=== PATIENT | female | born 1975 | race Two or more races ===

== ENCOUNTER 2019-04-09 09:55 | Inpatient (IN) | payer OTHER ==
[~2019-04-09] VITALS: Ht 172.7 cm; Wt 93.0 kg
[~2019-04-09 09:55] MED LIST: NAPR60CR2; None per pt
[2019-04-09] MEDS ORDERED: LACTATED RINGERS 1,000 ML IV SCH (10:39)
[2019-04-09] MEDS: SCOPOLAMINE 1MG PATCH TD SCH (10:56)
[2019-04-09 11:00] LABS: BASOPHILS # (AUTO) 0.05 x10^3/uL (0-0.1); BASOPHILS % (AUTO) 1 % (0-1); EOSINOPHILS # (AUTO) 0.11 x10^3/uL (0-0.4); EOSINOPHILS % (AUTO) 2 % (1-7); LYMPHOCYTES # (AUTO) 1.55 x10^3/uL (1-3.4); LYMPHOCYTES % (AUTO) 23 % (22-44); MD NO; MEAN CORPUSCULAR HEMOGLOBIN 31.3 pg (27.0-34.8); MEAN CORPUSCULAR HGB CONC 33.7 g/dL (32.4-35.8); MEAN CORPUSCULAR VOLUME 92.7 fL (80-100); MEAN PLATELET VOLUME 8.2 fL (7.4-10.4); MONOCYTES # (AUTO) 0.35 x10^3/uL (0.2-0.8); MONOCYTES % (AUTO) 5 % (2-9); NEUTROPHILS # (AUTO) 4.73 x10^3/uL (1.8-6.8); NEUTROPHILS % (AUTO) 70 % (42-75); PLATELET COUNT 353 x10^3/uL (130-400); RED BLOOD COUNT 4.44 x10^6/uL (3.82-5.3); RED CELL DISTRIBUTION WIDTH 12.9 % (9.6-15.2)
[2019-04-09] MEDS ORDERED: GABAPENTIN 300 MG CAPSULE PO ONE (11:00)
[2019-04-09] MEDS ORDERED: DIAZEPAM 5 MG TABLET PO ONE (11:00)
[2019-04-09] MEDS ORDERED: ACETAMINOPHEN 500 MG TABLET PO ONE (11:00)
[2019-04-09 11:11] LABS: ALANINE AMINOTRANSFERASE 25 U/L (12-78); ANION GAP 6 mmol/L (5-15); CALCIUM 8.9 mg/dL (8.5-10.1); CHLORIDE 109 mmol/L (98-107)
[2019-04-09 11:14] LABS: ALKALINE PHOSPHATASE 46 U/L (45-117); BILIRUBIN,TOTAL 0.8 mg/dL (0.2-1.0); CREATININE 0.81 mg/dL (0.55-1.02)
[2019-04-09] MEDS ORDERED: FENTANYL PF 250 MCG/5ML ONE ×2 (11:44→12:52)
[2019-04-09] MEDS ORDERED: MIDAZOLAM 1 MG/ML, 2ML ONE (11:44)
[2019-04-09] MEDS ORDERED: PROPOFOL 10 MG/ML, 20ML ONE (11:45)
[2019-04-09] MEDS ORDERED: DEXAMETHASONE 4 MG/ML, 1ML ONE (11:45)
[2019-04-09] MEDS ORDERED: CEFOTETAN 2 GM ONE (12:02)
[2019-04-09] MEDS ORDERED: SUCCINYLCHOLINE 20 MG/ML, 10ML ONE (12:54)
[2019-04-09] MEDS ORDERED: ROCURONIUM 10MG/ML,5ML ONE (12:54)
[2019-04-09] MEDS ORDERED: DIAZEPAM 5 MG/ML, 2ML IVPush PRN (14:00)
[2019-04-09] MEDS ORDERED: OXYcodone 5 MG/5 ML ORAL.SOL UDC PO PRN (14:00)
[2019-04-09] MEDS ORDERED: MEPERIDINE/PF 25MG/ML,1ML IVPush PRN (14:00)
[2019-04-09] MEDS ORDERED: HALOPERIDOL 5 MG/ML IV PRN (14:00)
[2019-04-09] MEDS ORDERED: ONDANSETRON ODT 8 MG PO PRN (14:00)
[2019-04-09] MEDS ORDERED: hydrALAzine 20 MG/ML, 1ML IV PRN (14:00)
[2019-04-09] MEDS ORDERED: MIDAZOLAM 1 MG/ML, 2ML IV PRN (14:00)
[2019-04-09] MEDS ORDERED: PROMETHAZINE 25 MG/ML, 1ML IV PRN (14:00)
[2019-04-09] MEDS ORDERED: EPHEDRINE 50 MG/ML, 1ML IVPush PRN (14:00)
[2019-04-09] MEDS ORDERED: HYDROmorphone 2 MG/ML, 1ML IVPush PRN (14:00)
[2019-04-09] MEDS ORDERED: LABETALOL 5MG/ML, 20ML IV PRN (14:00)
[2019-04-09] MEDS ORDERED: ONDANSETRON 2MG/ML, 2ML IV PRN (14:00)
[2019-04-09] MEDS ORDERED: PROMETHAZINE 12.5 MG SUPP PR PRN (14:00)
[2019-04-09] MEDS ORDERED: ALBUTEROL SULFATE 2.5 MG/3 ML NPPB PRN (14:00)
[2019-04-09] MEDS ORDERED: SUGAMMADEX 200 MG/2 ML IVPush ONE (14:14)
[2019-04-09] MEDS ORDERED: ONDANSETRON 2MG/ML, 2ML ONE (14:14)
[2019-04-09] MEDS ORDERED: KETOROLAC 30 MG/1 ML ONE (14:34)
[2019-04-09] MEDS ORDERED: MEPERIDINE/PF 25MG/ML,1ML ONE (15:04)
[2019-04-09] MEDS ORDERED: OXYcodone 5 MG/5 ML ORAL.SOL UDC ONE (15:04)
[2019-04-09] MEDS ORDERED: FENTANYL PF 100 MCG/2ML ONE (15:24)
[2019-04-09] MEDS: FENTANYL PF 100 MCG/2ML IV PRN ×3 (15:25→15:40)
[2019-04-09] MEDS ORDERED: PROMETHAZINE 25 MG/ML, 1ML ONE (15:26)
[2019-04-09] MEDS: CEFOTETAN PMX 2GM/50ML 50 ML IVPB SCH (20:16)
[2019-04-09 20:18] VITALS: BP 103/68
[2019-04-09] MEDS: FAMOTIDINE 20 MG/2 ML IVPush SCH (21:20)
[2019-04-09] MEDS: D5%-0.45NACL+KCL 20MEQ 1,000 ML IV SCH (21:36)
[2019-04-10 00:57] VITALS: BP 98/61
[2019-04-10] MEDS: D5%-0.45NACL+KCL 20MEQ 1,000 ML IV SCH ×3 (05:23→22:42)
[2019-04-10 06:04] LABS: CHLORIDE 108 mmol/L (98-107)
[2019-04-10 06:08] LABS: ANION GAP 6 mmol/L (5-15); CALCIUM 7.9 mg/dL (8.5-10.1); CREATININE 0.95 mg/dL (0.55-1.02)
[2019-04-10 06:13] LABS: BASOPHILS # (AUTO) 0.02 x10^3/uL (0-0.1); BASOPHILS % (AUTO) 0 % (0-1); EOSINOPHILS # (AUTO) 0.02 x10^3/uL (0-0.4); EOSINOPHILS % (AUTO) 0 % (1-7); LYMPHOCYTES # (AUTO) 0.79 x10^3/uL (1-3.4); LYMPHOCYTES % (AUTO) 6 % (22-44); MD NO; MEAN CORPUSCULAR HEMOGLOBIN 31.2 pg (27.0-34.8); MEAN CORPUSCULAR HGB CONC 33.9 g/dL (32.4-35.8); MEAN CORPUSCULAR VOLUME 92.1 fL (80-100); MONOCYTES # (AUTO) 0.52 x10^3/uL (0.2-0.8); MONOCYTES % (AUTO) 4 % (2-9); NEUTROPHILS # (AUTO) 12.36 x10^3/uL (1.8-6.8); NEUTROPHILS % (AUTO) 90 % (42-75); PLATELET COUNT 308 x10^3/uL (130-400); RED CELL DISTRIBUTION WIDTH 13.4 % (9.6-15.2)
[2019-04-10 07:45] VITALS: BP 99/65
[2019-04-10] MEDS: ENOXAPARIN 40 MG/0.4 ML SQ SCH (09:17)
[2019-04-10] MEDS: FAMOTIDINE 20 MG/2 ML IVPush SCH ×2 (09:17→21:44)
[2019-04-10] MEDS: CEFOTETAN PMX 2GM/50ML 50 ML IVPB SCH (09:17)
[2019-04-10 13:28] VITALS: BP 108/53
[2019-04-10 20:19] VITALS: BP 91/58
[2019-04-11 02:46] VITALS: BP 103/67
[2019-04-11] MEDS: D5%-0.45NACL+KCL 20MEQ 1,000 ML IV SCH ×2 (04:08→14:51)
[2019-04-11 05:14] LABS: BASOPHILS # (AUTO) 0.02 x10^3/uL (0-0.1); BASOPHILS % (AUTO) 0 % (0-1); EOSINOPHILS # (AUTO) 0.02 x10^3/uL (0-0.4); EOSINOPHILS % (AUTO) 0 % (1-7); LYMPHOCYTES # (AUTO) 1.72 x10^3/uL (1-3.4); LYMPHOCYTES % (AUTO) 18 % (22-44); MD NO; MEAN CORPUSCULAR HEMOGLOBIN 30.8 pg (27.0-34.8); MEAN CORPUSCULAR HGB CONC 32.9 g/dL (32.4-35.8); MEAN CORPUSCULAR VOLUME 93.8 fL (80-100); MEAN PLATELET VOLUME 8.8 fL (7.4-10.4); MONOCYTES # (AUTO) 0.56 x10^3/uL (0.2-0.8); MONOCYTES % (AUTO) 6 % (2-9); NEUTROPHILS # (AUTO) 7.47 x10^3/uL (1.8-6.8); NEUTROPHILS % (AUTO) 76 % (42-75); PLATELET COUNT 285 x10^3/uL (130-400); RED BLOOD COUNT 3.51 x10^6/uL (3.82-5.3); RED CELL DISTRIBUTION WIDTH 13.7 % (9.6-15.2)
[2019-04-11 07:35] VITALS: BP 96/48
[2019-04-11] MEDS: FAMOTIDINE 20 MG/2 ML IVPush SCH ×2 (09:15→22:11)
[2019-04-11] MEDS: ENOXAPARIN 40 MG/0.4 ML SQ SCH (09:15)
[2019-04-11 15:29] VITALS: BP 97/53
[2019-04-11 19:19] VITALS: BP 95/64
[2019-04-12 02:09] VITALS: BP 95/63
[2019-04-12] MEDS: D5%-0.45NACL+KCL 20MEQ 1,000 ML IV SCH ×2 (04:56→14:28)
[2019-04-12 07:37] VITALS: BP 94/59
[2019-04-12] MEDS: SCOPOLAMINE 1MG PATCH TD SCH (11:00)
[2019-04-12 13:21] VITALS: BP 85/54
[2019-04-12 14:00] VITALS: BP 97/56
[2019-04-12] MEDS: FAMOTIDINE 20 MG/2 ML IVPush SCH ×2 (14:31→20:46)
[2019-04-12] MEDS: OXYcodone/APAP 7.5/325MG TABLET PO PRN ×2 (16:01→22:13)
[2019-04-12] MEDS: ONDANSETRON 2MG/ML, 2ML IV PRN ×2 (16:03→22:13)
[2019-04-12 21:24] VITALS: BP 101/67
[2019-04-13] MEDS: D5%-0.45NACL+KCL 20MEQ 1,000 ML IV SCH ×3 (01:34→14:46)
[2019-04-13] MEDS: ONDANSETRON 2MG/ML, 2ML IV PRN ×2 (03:57→10:54)
[2019-04-13] MEDS: OXYcodone/APAP 7.5/325MG TABLET PO PRN (03:57)
[2019-04-13 03:59] VITALS: BP 96/62
[2019-04-13 06:04] LABS: BASOPHILS # (AUTO) 0.05 x10^3/uL (0-0.1); BASOPHILS % (AUTO) 1 % (0-1); EOSINOPHILS # (AUTO) 0.44 x10^3/uL (0-0.4); EOSINOPHILS % (AUTO) 6 % (1-7); LYMPHOCYTES # (AUTO) 1.93 x10^3/uL (1-3.4); LYMPHOCYTES % (AUTO) 26 % (22-44); MD NO; MEAN CORPUSCULAR HEMOGLOBIN 31.5 pg (27.0-34.8); MEAN CORPUSCULAR HGB CONC 33.8 g/dL (32.4-35.8); MEAN CORPUSCULAR VOLUME 93.4 fL (80-100); MEAN PLATELET VOLUME 8.8 fL (7.4-10.4); MONOCYTES # (AUTO) 0.57 x10^3/uL (0.2-0.8); MONOCYTES % (AUTO) 8 % (2-9); NEUTROPHILS # (AUTO) 4.35 x10^3/uL (1.8-6.8); NEUTROPHILS % (AUTO) 59 % (42-75); PLATELET COUNT 300 x10^3/uL (130-400); RED BLOOD COUNT 3.37 x10^6/uL (3.82-5.3); RED CELL DISTRIBUTION WIDTH 13.2 % (9.6-15.2)
[2019-04-13 07:13] VITALS: BP 100/63
[2019-04-13] MEDS: FAMOTIDINE 20 MG/2 ML IVPush SCH ×2 (08:30→20:31)
[2019-04-13] MEDS: TAMSULOSIN 0.4 MG CAP.ER.24H PO SCH (10:30)
[2019-04-13 12:01] LABS: MICROSCOPIC NOT IND
[2019-04-13 12:14] LABS: CULTURE INDICATED? NO
[2019-04-13 14:32] VITALS: BP 103/67
[2019-04-13] MEDS: METOCLOPRAMIDE 5 MG/ML, 2ML IVPush SCH ×2 (15:00→20:31)
[2019-04-13] MEDS ORDERED: OXYcodone/APAP 5/325MG TABLET PO PRN ×2 (15:30)
[2019-04-13] MEDS ORDERED: OXYcodone/APAP 7.5/325MG TABLET PO PRN (16:30)
[2019-04-13] MEDS: OXYcodone/APAP 5/325MG TABLET PO PRN ×2 (17:28→18:22)
[2019-04-13 20:16] VITALS: BP 108/74
[2019-04-14] MEDS: METOCLOPRAMIDE 5 MG/ML, 2ML IVPush SCH ×4 (01:43→21:48)
[2019-04-14] MEDS: OXYcodone/APAP 5/325MG TABLET PO PRN ×7 (01:43→21:48)
[2019-04-14 01:48] VITALS: BP 102/65
[2019-04-14] MEDS: D5%-0.45NACL+KCL 20MEQ 1,000 ML IV SCH (05:00)
[2019-04-14] MEDS: ONDANSETRON 2MG/ML, 2ML IV PRN (05:05)
[2019-04-14 07:15] VITALS: BP 100/67
[2019-04-14] MEDS: FAMOTIDINE 20 MG/2 ML IVPush SCH ×2 (07:49→21:48)
[2019-04-14] MEDS: TAMSULOSIN 0.4 MG CAP.ER.24H PO SCH (07:49)
[2019-04-14 12:50] VITALS: BP 110/71
[2019-04-14 20:56] VITALS: BP 111/70
[2019-04-15] MEDS: OXYcodone/APAP 5/325MG TABLET PO PRN ×2 (03:20→08:10)
[2019-04-15] MEDS: METOCLOPRAMIDE 5 MG/ML, 2ML IVPush SCH ×2 (03:23→08:13)
[2019-04-15] MEDS: ONDANSETRON 2MG/ML, 2ML IV PRN (03:24)
[2019-04-15 03:50] VITALS: BP 94/54
[2019-04-15 07:31] VITALS: BP 104/58
[2019-04-15] MEDS: FAMOTIDINE 20 MG/2 ML IVPush SCH (08:10)
[2019-04-15] MEDS: TAMSULOSIN 0.4 MG CAP.ER.24H PO SCH (08:10)
[2019-04-15] MEDS ORDERED: OXYC-302 PO (09:55)
[2019-04-15 10:00] VITALS: BP 105/76
== END 2019-04-15 10:57 | disposition home or self-care (01) | DRG 331 ==
LOC: ORIP 09:55 → EDSTATUS 15:30 → 4NE 18:25 → DCLOUNGE 04-15 10:45
PROVIDERS: ADMIT Surgery; ATTEND Surgery
PROC: 0DBN0ZZ Excision of Sigmoid Colon, Open Approach (ICD-10-PCS; principal; 2019-04-09 12:00)
PROC: 0T9B70Z Drainage of Bladder with Drainage Device, Via Natural or Artificial Opening (ICD-10-PCS; 2019-04-13)
DX: K57.32 Diverticulitis of large intestine without perforation or abscess without bleeding (principal); E66.9 Obesity, unspecified; J45.909 Unspecified asthma, uncomplicated; Z90.710 Acquired absence of both cervix and uterus; Z82.49 Family history of ischemic heart disease and other diseases of the circulatory system; Z83.3 Family history of diabetes mellitus; Z68.31 Body mass index [BMI] 31.0-31.9, adult
CPT/HCPCS: 36415; J3490; 80048; 80053; 81003; 85025; 86850; 86900; 88307; 93005; G0378; J1100; J1650; J1885; J2250; J2270; J2405; J2550; J2704; J3010; J0330; J2175; J2765; J3480; J7120